=== PATIENT | female | born 1990 | race Hispanic/Latino ===

== ENCOUNTER 2020-11-05 16:50 | Day surgery (SDC) | payer MEDICARE, MEDICAID ==
[2020-11-05] MEDS ORDERED: hydrALAZINE 20 MG/ML VIAL SLOW IVP PRN (17:49)
[2020-11-05 18:18] VITALS: BMI 30.2
[2020-11-05 19:24] LABS: Bilirubin Neg (Negative); Blood, Urine Negative (Negative); Clarity Clear (Clear); Glucose, Urine (Dipstick) Normal (Negative); Ketone, Urine Negative (Negative); Leukocyte Negative (Negative); Nitrite Negative (Negative); Protein, Urine (Dipstick) Negative (Neg-Trace); Urobilinogen Normal mg/dL (Less than 2); pH, Urine 6.5 (5.0-9.0)
== END 2020-11-05 20:45 | disposition home or self-care (01) ==
LOC: CSHLD/OP 16:50
PROVIDERS: ATTEND Obstetrics & Gynecology
DX: O46.92 Antepartum hemorrhage, unspecified, second trimester (principal); O09.212 Supervision of pregnancy with history of pre-term labor, second trimester; O09.292 Supervision of pregnancy with other poor reproductive or obstetric history, second trimester; O34.211 Maternal care for low transverse scar from previous cesarean delivery; Z3A.21 21 weeks gestation of pregnancy
CPT/HCPCS: 76815; 81003; 99283

== ENCOUNTER 2021-02-18 08:56 | Outpatient (CLI) | payer MEDICARE, MEDICAID ==
[2021-02-19 01:29] LABS: SARS-CoV-2 PCR by NAA Not Detected (NotDetected)
== END 2021-02-18 08:57 | disposition home or self-care (01) ==
LOC: CSHLAB 08:56
PROVIDERS: ATTEND Obstetrics & Gynecology
DX: Z20.822 Contact with and (suspected) exposure to COVID-19 (principal)
CPT/HCPCS: U0003; U0005

== ENCOUNTER 2022-05-27 19:58 | Day surgery (SDC) | payer MEDICARE, MEDICAID ==
[2022-05-27 20:27] VITALS: BMI 33.4
[2022-05-27] MEDS ORDERED: hydrALAZINE 20 MG/ML VIAL SLOW IVP PRN (21:33)
[2022-05-27 22:27] LABS: Bilirubin Neg (Negative); Blood, Urine Negative (Negative); CAUTI Indications for Culture Acute Hematuria; Clarity Clear (Clear); Glucose, Urine (Dipstick) Normal (Negative); Ketone, Urine Negative (Negative); Leukocyte 25 (Negative); Nitrite Negative (Negative); Protein, Urine (Dipstick) Negative (Neg-Trace); Urobilinogen Normal mg/dL (Less than 2)
[2022-05-27 22:28] LABS: Urine Culture Reflex No No
[2022-05-27 22:36] LABS: Bacteria/HPF None Seen HPF (None Seen); RBC/HPF None Seen HPF (0-3); Squamous Epithelial 0-3 HPF (0-3); WBC/HPF 0-3 HPF (0-3)
[2022-05-28 21:11] LABS: Chlamydia by PCR Not Detected (NotDetected); GC by PCR Not Detected (NotDetected)
== END 2022-05-27 23:17 | disposition home or self-care (01) ==
LOC: CSHLD/OP 19:58
PROVIDERS: ATTEND Obstetrics & Gynecology
DX: O46.92 Antepartum hemorrhage, unspecified, second trimester (principal); Z3A.25 25 weeks gestation of pregnancy; O99.512 Diseases of the respiratory system complicating pregnancy, second trimester; J45.909 Unspecified asthma, uncomplicated; O99.891 Other specified diseases and conditions complicating pregnancy; H91.90 Unspecified hearing loss, unspecified ear; Z86.19 Personal history of other infectious and parasitic diseases; Z79.899 Other long term (current) drug therapy; Z90.49 Acquired absence of other specified parts of digestive tract
CPT/HCPCS: 51701; 81001; 87480; 87491; 87510; 87591; 87660; 99284

== ENCOUNTER 2022-08-15 09:43 | Inpatient (IN) | payer MEDICARE, MEDICAID ==
[2022-08-14 10:53] LABS: Hemoglobin 12.9 g/dL (12.0-15.5); Platelet Count 214 10x3/uL (150-450)
[2022-08-14 11:21] LABS: SARS-CoV-2 NAA Rapid Test Not Detected (NotDetected)
[2022-08-14 11:24] LABS: Syphilis Antibody Nonreactive (Nonreactive); Syphilis Antibody Index 0.08 S/CO (<1.00 Non-Reactive)
[2022-08-14 11:26] LABS: HBSAg Index 0.14 S/CO (0-0.99); Hep B Surf Ag Non-Reactive S/CO (NonReactive)
[2022-08-15 10:41] VITALS: BMI 35.9
[2022-08-15] MEDS ORDERED: Ondansetron PF 4 MG/2 ML Vial IVP PRN ×2 (10:55→11:17)
[2022-08-15] MEDS ORDERED: Diphenoxylate HCl/Atropine Tablet PO PRN ×2 (10:55)
[2022-08-15] MEDS ORDERED: Famotidine/PF 20 mg/2ml Vial SLOW IVP PRN (10:55)
[2022-08-15] MEDS ORDERED: Carboprost 250 MCG/ML AMP IM PRN (10:55)
[2022-08-15] MEDS ORDERED: Bicitra 30 ML UDCUP PO PRN (10:55)
[2022-08-15] MEDS ORDERED: hydrALAZINE 20 MG/ML VIAL SLOW IVP PRN ×2 (10:55→16:58)
[2022-08-15] MEDS ORDERED: Misoprostol 200 MCG TAB PR PRN ×2 (10:55→16:58)
[2022-08-15] MEDS ORDERED: Promethazine HCl 25 MG/ML VIAL IM PRN ×3 (10:55→16:58)
[2022-08-15] MEDS ORDERED: Methylergonovine 0.2 MG/ML VIAL IM PRN ×2 (10:55→16:58)
[2022-08-15] MEDS ORDERED: Tranexamic Acid 1,000 MG in Sodium Chloride 0.9% 250 ML 250 ML IVPB PRN (10:55)
[2022-08-15] MEDS ORDERED: CEFAZOLIN 2 GM in Sodium Chloride 0.9% 100 ML IVPB SCH (11:00)
[2022-08-15] MEDS ORDERED: NS w/ Oxytocin 30 units 500 ML IV SCH ×2 (11:00→16:58)
[2022-08-15] MEDS ORDERED: Lactated Ringer's 1,000 ML IV SCH (11:00)
[2022-08-15] MEDS ORDERED: Fentanyl 100 MCG/2 ML VIAL SLOW IVP PRN ×2 (11:17→17:30)
[2022-08-15] MEDS ORDERED: Promethazine HCl 25 MG SUPP PR PRN (11:17)
[2022-08-15] MEDS ORDERED: diphenhydrAMINE 50 MG/ML VIAL IVP PRN (11:17)
[2022-08-15] MEDS ORDERED: Ondansetron HCl/PF 4 MG/2 ML Vial IVP PRN (11:17)
[2022-08-15] MEDS ORDERED: Moisturizing Cream (Eucerin) 113 GM JAR TOP PRN (11:17)
[2022-08-15] MEDS ORDERED: Meperidine HCl/PF 25 MG/ML VIAL SLOW IVP PRN (11:17)
[2022-08-15] MEDS ORDERED: Naloxone HCl 0.4 mg/ml Vial IV PRN (11:17)
[2022-08-15] MEDS ORDERED: Naloxone HCl 0.4 mg/ml Vial IVP PRN ×2 (11:17)
[2022-08-15] MEDS ORDERED: Communication Order-Pharmacy FS SCH (11:30)
[2022-08-15] MEDS ORDERED: ePHEDrine Sulfate 50 MG/10 ML VIAL ONE (11:33)
[2022-08-15] MEDS ORDERED: Morphine PF 10 MG/10 ML VIAL ONE (11:33)
[2022-08-15] MEDS ORDERED: Oxytocin 10 UNITS/ML VIAL ONE (11:34)
[2022-08-15] MEDS ORDERED: Ketorolac Tromethamine 30 MG/ML VIAL ONE (11:34)
[2022-08-15] MEDS ORDERED: Ondansetron PF 4 MG/2 ML Vial ONE (11:34)
[2022-08-15] MEDS ORDERED: Phenylephrine 40 MG/NS 250 ML 250 ML ONE (11:34)
[2022-08-15] MEDS ORDERED: Fentanyl 250 MCG/5 ML VIAL ONE (12:46)
[2022-08-15] MEDS ORDERED: Midazolam HCl 2 mg/2 ml Vial ONE ×2 (12:46→13:30)
[2022-08-15] MEDS ORDERED: Tranexamic Acid 1,000 MG/10 ML VIAL ONE (13:32)
[2022-08-15] MEDS ORDERED: Rocuronium Bromide 10 MG/ML (10ML VIAL) ONE (13:40)
[2022-08-15] MEDS ORDERED: PROPOFOL 20 ML ONE (13:40)
[2022-08-15] MEDS ORDERED: PHENYLEPHRINE-NS 100 MCG/ML 10 ML SYRINGE ONE (13:40)
[2022-08-15] MEDS ORDERED: Fentanyl 100 MCG/2 ML VIAL ONE (16:35)
[2022-08-15] MEDS ORDERED: Boostrix 0.5 ML (Tdap) VIAL (>/=7 yrs of age) IM ONE (16:58)
[2022-08-15] MEDS ORDERED: HYDROcodone/Acetaminophen 5/325 mg Tablet PO PRN ×2 (16:58)
[2022-08-15] MEDS ORDERED: Bisacodyl 10 MG SUPP PR PRN (16:58)
[2022-08-15] MEDS ORDERED: Ketorolac Tromethamine 30 MG/ML VIAL IVP SCH (17:30)
[2022-08-15] MEDS ORDERED: Acetaminophen 500 MG TAB PO SCH (17:45)
[2022-08-15] MEDS: Fentanyl 100 MCG/2 ML VIAL SLOW IVP SCH ×3 (17:46→18:15)
[2022-08-15] MEDS: oxyCODONE 5 MG TAB PO PRN ×2 (18:40→23:41)
[2022-08-15] MEDS: Ketorolac Tromethamine 30 MG/ML VIAL IVP PRN (21:01)
[2022-08-15] MEDS: Ondansetron PF 4 MG/2 ML Vial IVP PRN (21:05)
[2022-08-15] MEDS: Lactated Ringer's 1,000 ML IV SCH (22:48)
[2022-08-15] MEDS: Docusate 100 MG CAP PO SCH (22:51)
[2022-08-15] MEDS: Ferrous Sulfate 325 MG TAB PO SCH (22:51)
[2022-08-15] MEDS: diphenhydrAMINE 25 MG CAP PO PRN (23:41)
[2022-08-15] MEDS ORDERED: Acetaminophen 325 MG TAB PO PRN (23:59)
[2022-08-16] MEDS: Acetaminophen 500 MG TAB PO SCH ×4 (01:06→18:31)
[2022-08-16] MEDS: Lactated Ringer's 1,000 ML IV SCH ×3 (02:23→17:13)
[2022-08-16] MEDS: Ketorolac Tromethamine 30 MG/ML VIAL IVP PRN ×2 (03:56→09:51)
[2022-08-16] MEDS: diphenhydrAMINE 25 MG CAP PO PRN ×3 (03:57→14:32)
[2022-08-16 04:54] LABS: Hemoglobin 10.4 g/dL (12.0-15.5); Mean Corpuscular HGB CONC 33.4 g/dL (32.0-36.0); Mean Corpuscular Hemoglobin 29.5 pg (27.0-33.0); Mean Corpuscular Volume 88.1 fl (81.6-98.3); Mean Platelet Volume 9.7 fl (7.4-10.4); Platelet Count 166 10x3/uL (150-450); RBC Distribution Width 14.5 % (11.5-14.5); Red Blood Cell (RBC) Count 3.53 10x6/uL (3.90-5.03); White Blood Cell (WBC) Count 7.9 10x3/uL (3.5-10.5)
[2022-08-16] MEDS: oxyCODONE 5 MG TAB PO PRN ×2 (06:37→11:25)
[2022-08-16] MEDS: Docusate 100 MG CAP PO SCH (08:32)
[2022-08-16] MEDS: Prenatal Vitamin 1 TAB PO SCH (08:32)
[2022-08-16] MEDS: Ferrous Sulfate 325 MG TAB PO SCH ×2 (09:51→19:04)
[2022-08-16] MEDS ORDERED: HYDROcodone/Acetaminophen 5/325 mg Tablet PO PRN (17:05)
[2022-08-16] MEDS: Ibuprofen 800 MG TAB PO SCH (19:43)
[2022-08-16] MEDS: Simethicone Chewable 80 MG TAB PO PRN (19:43)
[2022-08-16] MEDS ORDERED: Morphine 2 MG/ML VIAL SLOW IVP SCH (22:15)
[2022-08-17] MEDS: Docusate 100 MG CAP PO SCH ×3 (05:29→21:03)
[2022-08-17] MEDS: Acetaminophen 500 MG TAB PO SCH ×3 (05:30→18:14)
[2022-08-17] MEDS: Ibuprofen 800 MG TAB PO SCH ×3 (06:48→21:02)
[2022-08-17] MEDS: Lactated Ringer's 1,000 ML IV SCH ×3 (07:48→18:14)
[2022-08-17] MEDS: Prenatal Vitamin 1 TAB PO SCH (07:54)
[2022-08-17] MEDS ORDERED: HYDROcodone/Acetaminophen 5/325 mg Tablet PO PRN ×2 (08:46→09:00)
[2022-08-17] MEDS: Simethicone Chewable 80 MG TAB PO PRN ×3 (09:08→21:03)
[2022-08-17] MEDS: HYDROcodone/Acetaminophen 5/325 mg Tablet PO PRN ×3 (09:08→19:26)
[2022-08-17] MEDS: Ferrous Sulfate 325 MG TAB PO SCH ×2 (11:10→20:57)
[2022-08-17] MEDS: Ondansetron PF 4 MG/2 ML Vial IVP PRN (15:46)
[2022-08-18] MEDS: HYDROcodone/Acetaminophen 5/325 mg Tablet PO PRN ×3 (00:27→12:59)
[2022-08-18] MEDS: Ibuprofen 800 MG TAB PO SCH ×2 (05:32→13:52)
[2022-08-18] MEDS: Simethicone Chewable 80 MG TAB PO PRN (05:32)
[2022-08-18 07:48] VITALS: BP 113/62; TEMP 98.2
[2022-08-18] MEDS: Docusate 100 MG CAP PO SCH (07:53)
[2022-08-18] MEDS: Prenatal Vitamin 1 TAB PO SCH (07:54)
[2022-08-18] MEDS: Lactated Ringer's 1,000 ML IV SCH ×2 (07:55→15:04)
[2022-08-18] MEDS: Acetaminophen 500 MG TAB PO SCH ×2 (07:56→15:06)
[2022-08-18] MEDS: Ferrous Sulfate 325 MG TAB PO SCH (07:58)
== END 2022-08-18 14:40 | disposition home or self-care (01) | DRG 788 ==
LOC: CSHLD 09:43 → CSHPP 16:49
PROVIDERS: ADMIT Obstetrics & Gynecology; ATTEND Obstetrics & Gynecology
PROC: 10D00Z1 Extraction of Products of Conception, Low, Open Approach (ICD-10-PCS; principal; 2022-08-15)
DX: O34.212 Maternal care for vertical scar from previous cesarean delivery (principal); Z37.0 Single live birth; Z20.822 Contact with and (suspected) exposure to COVID-19; Z3A.37 37 weeks gestation of pregnancy
CPT/HCPCS: 36415; 51702; 85014; 85018; 85027; 85049; 86780; 86850; 86900; 86901; 87340; J1885; J2250; J2272; J2274; J2405; J2590; J2704; J3010; J3490; S0028; U0002